=== PATIENT | male | born 1975 | race American Indian/Alaskan Native ===

== ENCOUNTER 2024-05-06 16:27 | Emergency (ER) | payer SELFPAY ==
[2024-05-06 20:22] VITALS: BP 148/88; PULSE 68; RESP 18; TEMP 98.6; O2SAT 99
== END 2024-05-06 22:44 | disposition home or self-care (01) ==
LOC: ER 16:27
DX: G44.209 Tension-type headache, unspecified, not intractable (principal); M54.2 Cervicalgia
CPT/HCPCS: 70450